=== PATIENT | female | born 1995 | race Caucasian/White ===

== ENCOUNTER 2018-02-01 08:07 | Day surgery (SDC) | payer BC, SELFPAY ==
[2018-01-26 12:30] VITALS: BMI 25.0
[2018-02-01] VITALS (9 sets, daily range): BP systolic 98–136; BP diastolic 54–76; PULSE 59–73; RESP 18–20; TEMP 36.6–37.1; O2SAT 98–100
[2018-02-01 09:14] LABS: Urine Pregnancy, HCG Qual. Negative (Negative)
--- NOTE | 2018-02-01 09:20 | HMH.PROC ---
[facility] Procedure Note Procedure Note:: Flexible Sigmoidoscopy Procedure Report: Sigmoidoscopy with monopolar ablation to destruction of internal hemorrhoids Endoscopist: Martin Ram II, MD Referring physician: Srinivas Cortez MD Date of Procedure: February 01, 2018 Equipment: Olympus 180 variable stiffness pediatric colonoscope Sedation: MAC sedation Indication: Ms. Miller is a 22-year-old female with some hemorrhoidal bleeding, itching/pruritus and burning. She does have a history of constipation/pelvic floor (outlet constipation) and had panendoscopy in October 2015. Her colonoscopy was normal to the terminal ileum but she did have grade 1 internal hemorrhoids. The patient does have some obstipation/incomplete evacuation with some straining and excessive wiping. She previously was on MiraLAX plus Metamucil (fiber bowel regimen) which was reinitiated recently. She does state that her maternal grandfather had colon polyps and underwent colon surgery. Her mother also had colon polyps. She reports no family history of colitis, Crohn's disease or colon cancer. She does state that work ([employer]) sometimes exacerbates her symptoms. Procedure: Prior to the procedure, a history and physical exam was performed, and patient's medications and allergies were reviewed. The risks, benefits and alternatives of the sedation and procedure were discussed with the patient. All questions were answered and informed consent was obtained. The patient was brought to the procedure room. Patient identification and proposed procedure were verified by the physician and the nurse. The patient was placed in a left lateral decubitus position and the scope was passed under direct vision. Throughout the procedure, the patient's blood pressure, pulse, and oxygen saturations were monitored continuously. The colonoscopy was accomplished without difficulty. The patient tolerated the procedure well. Findings: On digital rectal examination there was normal rectal tone. There were no external hemorrhoids. There was a healing posterior midline anal fissure. The endoscope was introduced through the anal canal into the rectum and advanced to 40 cm from the pectinate line. Upon withdrawal, the sigmoid colon and rectum were entirely normal with normal mucosa and no polyps. There was no evidence of colitis, Crohn's disease or diverticular disease. Upon retroflexion within the rectum there were grade 1 internal hemorrhoids. These were ablated using monopolar ablation to destruction. Impression: 1. Normal sigmoidoscopy to 40 cm 2. Grade 1 internal hemorrhoids status post monopolar ablation to destruction Plan: I would encourage continuation of the fiber bowel regimen (MiraLAX plus Konsyl). We will discuss additional treatment options for her burning rectal discomfort and would consider Analpram and/or bag balm.
--- NOTE | 2018-02-01 09:25 | P.PCN_ITS ---
[facility] Procedure Note Procedure Note:: Flexible Sigmoidoscopy Procedure Report: Sigmoidoscopy with monopolar ablation to destruction of internal hemorrhoids Endoscopist: Martin Ram II, MD Referring physician: Srinivas Cortez MD Date of Procedure: February 01, 2018 Equipment: Olympus 180 variable stiffness pediatric colonoscope Sedation: MAC sedation Indication: Ms. Miller is a 22-year-old female with some hemorrhoidal bleeding, itching/pruritus and burning. She does have a history of constipation/pelvic floor (outlet constipation) and had panendoscopy in October 2015. Her colonoscopy was normal to the terminal ileum but she did have grade 1 internal hemorrhoids. The patient does have some obstipation/incomplete evacuation with some straining and excessive wiping. She previously was on MiraLAX plus Metamucil (fiber bowel regimen) which was reinitiated recently. She does state that her maternal grandfather had colon polyps and underwent colon surgery. Her mother also had colon polyps. She reports no family history of colitis, Crohn's disease or colon cancer. She does state that work ([employer]) sometimes exacerbates her symptoms. Procedure: Prior to the procedure, a history and physical exam was performed, and patient' s medications and allergies were reviewed. The risks, benefits and alternatives of the sedation and procedure were discussed with the patient. All questions were answered and informed consent was obtained. The patient was brought to the procedure room. Patient identification and proposed procedure were verified by the physician and the nurse. The patient was placed in a left lateral decubitus position and the scope was passed under direct vision. Throughout the procedure, the patient's blood pressure, pulse, and oxygen saturations were monitored continuously. The colonoscopy was accomplished without difficulty. The patient tolerated the procedure well. Findings: On digital rectal examination there was normal rectal tone. There were no external hemorrhoids. There was a healing posterior midline anal fissure. The endoscope was introduced through the anal canal into the rectum and advanced to 40 cm from the pectinate line. Upon withdrawal, the sigmoid colon and rectum were entirely normal with normal mucosa and no polyps. There was no evidence of colitis, Crohn's disease or diverticular disease. Upon retroflexion within the rectum there were grade 1 internal hemorrhoids. These were ablated using monopolar ablation to destruction. Impression: 1. Normal sigmoidoscopy to 40 cm 2. Grade 1 internal hemorrhoids status post monopolar ablation to destruction Plan: I would encourage continuation of the fiber bowel regimen (MiraLAX plus Konsyl) . We will discuss additional treatment options for her burning rectal discomfort and would consider Analpram and/or bag balm.
--- NOTE | 2018-02-01 09:26 | P.PN_ITS ---
[facility] Anesthesia Checklist - Patient Identification Patient Identification: Arm Band, Verbal (Name & ) - Structural Data Admitted From: Home Planned Operative Procedure/s: flexsigmoid Consent for Planned Operative Procedure(s) Verified: Yes Verified Documents: Surgical Consent - NPO Status Verified Time NPO: 00:00 - Additional verifications Patient : No Anesthesia Reactions: No Hx Blood Transfusions: No Blood Transfusion Reaction: No Cephalosporin Allergy: No Previous Colonoscopy: No - Cardiovascular Assessment Heart Sounds: S1 & S2 Pulse Strength: Baseline Pulse Rhythm: Regular Peripheral Edema: No - Airway Assessment C-Spine Mobility Assessed: Yes TMJ Mobility Assessed: Yes Dentition: Good Dentition - Neurological Assessment Level of Consciousness: Awake, Alert, Appropriate Hx Seizures: No Numbness or tingling in extremities: No - Anesthesia Plan Anesthesia Risk discussed: Yes Anesthesia Plan: Verified ASA Class: I Anesthesia Type: MAC [facility] [place] Anesthesia HX I have reviewed the patient's past medical history: Yes Medical History: Denies:: Diabetes Mellitus Type 1, Diabetes Mellitus Type 2, Internal Pacemaker, Lung Disease, Seizures Other Surgeries: Yes: Diagnostic Lap. No: Pacemaker
== END 2018-02-01 10:42 | disposition home or self-care (01) ==
LOC: OUTP 08:12
PROVIDERS: Visit Provider Internal Medicine Gastroenterology
PROC: 0DJD8ZZ Inspection of Lower Intestinal Tract, Via Natural or Artificial Opening Endoscopic (ICD-10-PCS; CPT 45330; principal; 2018-02-01 09:30)
DX: K64.8 Other hemorrhoids (principal)
CPT/HCPCS: 45346; 81025